=== PATIENT | male | born 1970 | race Caucasian/White ===

== ENCOUNTER → 2020-03-05 | Day surgery (SDC) | payer MEDICAID ==
[2020-02-27 16:32] LABS: BASOPHILS # (AUTO) 0.1 X10'3 (0-0.2); BASOPHILS % (AUTO) 0.8 % (0-1); EOSINOPHILS # (AUTO) 0.4 X10'3 (0-0.9); EOSINOPHILS % (AUTO) 5.2 % (0-6); LYMPHOCYTES # (AUTO) 1.5 X10'3 (1.1-4.8); LYMPHOCYTES % (AUTO) 18.2 % (21-51); MEAN CORPUSCULAR HEMOGLOBIN 28.3 PG (27.0-31.0); MEAN CORPUSCULAR HGB CONC 33.1 g/dL (33.0-36.5); MEAN CORPUSCULAR VOLUME 85.6 FL (78-98); MEAN PLATELET VOLUME 8.1 FL (7.4-10.4); MONOCYTES # (AUTO) 0.7 X10'3 (0-0.9); MONOCYTES % (AUTO) 8.4 % (2-12); NEUTROPHILS # (AUTO) 5.5 X10'3 (1.8-7.7); NEUTROPHILS % (AUTO) 67.4 % (42-75); PRE OP HEMATOCRIT 38.4 % (42.0-52.0); PRE OP HEMOGLOBIN 12.7 g/dL (14.0-17.9); PRE OP PLATELET COUNT 270 X10'3 (140-440); RED BLOOD COUNT 4.49 X10'6 (4.70-6.10); RED CELL DISTRIBUTION WIDTH 14.4 % (11.5-14.5)
[2020-02-27 16:47] LABS: ALBUMIN 3.7 G/DL (3.4-5.0); ALKALINE PHOSPHATASE 79 IU/L (46-116); BLOOD UREA NITROGEN 19 MG/DL (7-18); BUN/CREATININE RATIO 17.4 (5.4-32.0); CALCIUM 8.8 MG/DL (8.5-10.1); CHLORIDE 103 MMOL/L (99-107); CREATININE 1.09 MG/DL (0.60-1.10); PRE OP ALT 25 U/L (30-65); PRE OP ANION GAP 8 (8-16); PRE OP AST 15 U/L (10-37); PRE OP BILIRUB, TOTAL 0.3 MG/DL (0.0-1.0); PRE OP GLUCOSE 100 MG/DL (70-104); PRE OP POTASSIUM 4.3 MMOL/L (3.4-5.1); PRE OP SODIUM 138 MMOL/L (135-145); TOTAL PROTEIN 7.3 G/DL (6.4-8.2); eGFR 72 ML/MIN
[2020-03-05] VITALS (8 sets, daily range): BP systolic 117–139; BP diastolic 71–83
[~2020-03-05] VITALS: Ht 180.3 cm; Wt 106.6 kg
[~2020-03-05] MED LIST: ACET-75 PO; ALBU90AE INH; BUPIVAcaine/PF 2.5 mg/ml (0.25%) 30ml vial ONE; BUSP-28 PO; ETOD500T PO; FAMO40TA7 PO; FLO0.4C PO; GABA-530 PO; LIDO700A47 TOP; LIDOcaine 2% (20mg/ml) 5ml vial ONE; LISI10TA4 PO; MOME13HF2 INH; MONT10TA26 PO; NAPR-996 PO; OMEP-50 PO; QUET200T84 PO; VARE1TAB22 PO; acetaminophen 1,000mg/100ml IV 100 ML IV PRN; albuterol 2.5 MG/3 ML nebule NEB ONE; ceFAZolin 2gm in dextrose, iso 50 ML IV ONE; dexamethasone sod phosphate 4mg/ml inj. ONE; famotidine 20mg tablet PO ONE; fentaNYL/PF 50MCG/1 ML 2ML syringe ONE; meperidine/PF 25mg/ml syringe IV PRN; midazolam 2 mg/2 ml injection ONE; morphine 10mg/ml inj. ONE; morphine 2 MG/ML inj. syringe IV PRN; morphine 4 MG/ML inj SYRINge IV PRN; ondansetron/PF 4mg/2ml inj IV PRN; ondansetron/PF 4mg/2ml inj ONE; proCHLORperazine 10 MG/2 ml inj IV PRN; propofol inj 20 ML IV ONE; ringers solution, lacted 1,000 ML IV SCH; sevoflurane 250ml liquid IH ONE; triamcinolone acetonide 40mg/ml inj ONE; vancomycin 1,500 MG in NS 300ml IV soln IV ONE
--- NOTE | 2020-03-05 14:10 | NUR ---
Received from OR via , accompanied by Anesthesiologist DR MCCRACKEN and report given by Anesthesiolgist. AWAKENS TO VOICE. VITALS STABLE. DRESSING DI. JOCE PAIN.
--- NOTE | 2020-03-05 15:20 | NUR ---
AWAKE AND ORIENTED. VITALS STABLE. DRESSING DI. JOCE PAIN. HOME WITH A FRIEND AT THIS TIME.
== END | disposition home or self-care (01) ==
LOC: PAS 10:20
PROVIDERS: ATTEND Orthopaedic Surgery
DX: S83.272A Complex tear of lateral meniscus, current injury, left knee, initial encounter (principal); S83.232A Complex tear of medial meniscus, current injury, left knee, initial encounter; M17.0 Bilateral primary osteoarthritis of knee; J44.9 Chronic obstructive pulmonary disease, unspecified; F32.9 Major depressive disorder, single episode, unspecified; F41.9 Anxiety disorder, unspecified; K21.9 Gastro-esophageal reflux disease without esophagitis; I10 Essential (primary) hypertension; E66.8 Other obesity; Z68.33 Body mass index [BMI] 33.0-33.9, adult; F17.210 Nicotine dependence, cigarettes, uncomplicated; Z87.442 Personal history of urinary calculi; Z79.899 Other long term (current) drug therapy; Z86.14 Personal history of Methicillin resistant Staphylococcus aureus infection; Z86.11 Personal history of tuberculosis; Z98.890 Other specified postprocedural states; Z20.828 Contact with and (suspected) exposure to other viral communicable diseases; X58.XXXA Exposure to other specified factors, initial encounter; Y93.89 Activity, other specified; Y92.89 Other specified places as the place of occurrence of the external cause; Y99.8 Other external cause status
CPT/HCPCS: 29873; 29879; 29880; 36415; 80053; 82948; 85025; 87635; 93005; J1100; J2001; J2250; J2270; J2405; J2704; J3010; J3301; J3370; J3490; J7040; J7120; A4215; A4618; A6250; A6449; A7000

== ENCOUNTER 2021-11-30 18:10 | Emergency (ER) | payer MEDICAID ==
[~2021-11-30] VITALS: Ht 180.3 cm; Wt 115.5 kg
[~2021-11-30 18:10] MED LIST changes: -BUPIVAcaine/PF 2.5 mg/ml (0.25%) 30ml vial ONE; -LIDOcaine 2% (20mg/ml) 5ml vial ONE; +LISI10TA27 PO; -LISI10TA4 PO; +MONT-40 PO; -MONT10TA26 PO; -OMEP-50 PO; +OMEP20CA16 PO; -acetaminophen 1,000mg/100ml IV 100 ML IV PRN; -albuterol 2.5 MG/3 ML nebule NEB ONE; -ceFAZolin 2gm in dextrose, iso 50 ML IV ONE; -dexamethasone sod phosphate 4mg/ml inj. ONE; -famotidine 20mg tablet PO ONE; -fentaNYL/PF 50MCG/1 ML 2ML syringe ONE; -meperidine/PF 25mg/ml syringe IV PRN; -midazolam 2 mg/2 ml injection ONE; -morphine 10mg/ml inj. ONE; -morphine 2 MG/ML inj. syringe IV PRN; -morphine 4 MG/ML inj SYRINge IV PRN; -ondansetron/PF 4mg/2ml inj IV PRN; -ondansetron/PF 4mg/2ml inj ONE; -proCHLORperazine 10 MG/2 ml inj IV PRN; -propofol inj 20 ML IV ONE; -ringers solution, lacted 1,000 ML IV SCH; -sevoflurane 250ml liquid IH ONE; -triamcinolone acetonide 40mg/ml inj ONE; -vancomycin 1,500 MG in NS 300ml IV soln IV ONE
[2021-11-30 21:21] VITALS: BP 160/85
[2021-11-30 22:50] LABS: EOSINOPHILS # (AUTO) 0.2 X10'3 (0-0.9); HEMOGLOBIN 13.9 g/dl (14.0-17.9); MEAN PLATELET VOLUME 9.5 FL (7.4-10.4); RED CELL DISTRIBUTION WIDTH 14.1 % (11.5-14.5)
[2021-11-30 22:52] LABS: ALANINE AMINOTRANSFERASE 43 U/L (12-78); ALBUMIN 3.6 G/DL (3.4-5.0); ALBUMIN/GLOBULIN RATIO 1.2 (1.1-1.5); ALKALINE PHOSPHATASE 83 IU/L (46-116); ANION GAP 7 (8-16); ASPARTATE AMINO TRANSFERASE 29 U/L (10-37); BASOPHILS % (AUTO) 0.7 % (0-1); BILIRUBIN,TOTAL 0.3 MG/DL (0.1-1.0); BLOOD UREA NITROGEN 12 MG/DL (7-18); BUN/CREATININE RATIO 11.8 (5.4-32.0); CHLORIDE 106 MMOL/L (99-107); CREATININE 1.02 MG/DL (0.60-1.10); EOSINOPHILS % (AUTO) 2.4 % (0-6); GLUCOSE 102 MG/DL (70-104); HEMATOCRIT 41.5 % (42.0-52.0); LYMPHOCYTES # (AUTO) 1.8 X10'3 (1.1-4.8); LYMPHOCYTES % (AUTO) 25.1 % (21-51); MEAN CORPUSCULAR HEMOGLOBIN 26.9 PG (27.0-31.0); MEAN CORPUSCULAR HGB CONC 33.6 g/dL (33.0-36.5); MEAN CORPUSCULAR VOLUME 80.2 FL (78-98); MONOCYTES # (AUTO) 0.8 X10'3 (0-0.9); MONOCYTES % (AUTO) 10.7 % (2-12); NEUTROPHILS # (AUTO) 4.3 X10'3 (1.8-7.7); NEUTROPHILS % (AUTO) 61.1 % (42-75); PLATELET COUNT 266 X10'3 (140-440); POTASSIUM 3.7 MMOL/L (3.5-5.1); RED BLOOD COUNT 5.17 X10'6 (4.70-6.10); SODIUM 139 MMOL/L (135-145); TOTAL CARBON DIOXIDE 25.6 MMOL/L (24-32); TOTAL PROTEIN 6.7 G/DL (6.4-8.2); WHITE BLOOD COUNT 7.1 X10'3 (4.5-11.0); eGFR 77 ML/MIN
[2021-11-30 22:58] LABS: CALCIUM 8.5 MG/DL (8.5-10.1)
[2021-11-30] MEDS ORDERED: POTA-192 PO (23:37)
[2021-11-30] MEDS ORDERED: FURO-150 PO (23:37)
== END 2021-11-30 23:54 | disposition home or self-care (01) ==
LOC: ER 18:12
DX: R22.43 Localized swelling, mass and lump, lower limb, bilateral (principal); I42.9 Cardiomyopathy, unspecified; I10 Essential (primary) hypertension; J44.9 Chronic obstructive pulmonary disease, unspecified; K21.9 Gastro-esophageal reflux disease without esophagitis; G89.29 Other chronic pain; F17.200 Nicotine dependence, unspecified, uncomplicated
CPT/HCPCS: 36415; 71046; 80053; 84484; 85025; 85610; 99284

== ENCOUNTER 2022-10-11 09:38 | Day surgery (SDC) | payer MEDICAID ==
[2022-10-11] VITALS (18 sets, daily range): BP systolic 125–158; BP diastolic 75–94
[~2022-10-11] VITALS: Ht 177.8 cm; Wt 103.8 kg
[~2022-10-11 09:38] MED LIST changes: -ACET-75 PO; +BACL20TA PO; -BUSP-28 PO; -ETOD500T PO; -FAMO40TA7 PO; -FLO0.4C PO; +INDOCYANINE GREEN 25 MG/10 ML VIAL IV ONE; -LIDO700A47 TOP; -LISI10TA27 PO; +LISI40TA13 PO; -MOME13HF2 INH; -MONT-40 PO; -NAPR-996 PO; -QUET200T84 PO; -VARE1TAB22 PO; +cefazolin 2gm/D5W 100mL 100 ML IV ONE; +famotidine 20mg tablet PO ONE; +ringers solution, lacted 1,000 ML IV SCH
[2022-10-11 11:31] LABS: BASOPHILS # (AUTO) 0.1 X10'3 (0-0.2); BASOPHILS % (AUTO) 0.9 % (0-1); EOSINOPHILS # (AUTO) 0.1 X10'3 (0-0.9); EOSINOPHILS % (AUTO) 2.2 % (0-6); HEMATOCRIT 41.3 % (42.0-52.0); HEMOGLOBIN 13.6 g/dl (14.0-17.9); LYMPHOCYTES # (AUTO) 1.8 X10'3 (1.1-4.8); LYMPHOCYTES % (AUTO) 29.7 % (21-51); MEAN CORPUSCULAR HEMOGLOBIN 26.7 PG (27.0-31.0); MEAN CORPUSCULAR HGB CONC 32.8 g/dL (33.0-36.5); MEAN CORPUSCULAR VOLUME 81.2 FL (78-98); MONOCYTES # (AUTO) 0.7 X10'3 (0-0.9); MONOCYTES % (AUTO) 10.8 % (2-12); NEUTROPHILS # (AUTO) 3.4 X10'3 (1.8-7.7); NEUTROPHILS % (AUTO) 56.4 % (42-75); PLATELET COUNT 213 X10'3 (140-440); RED BLOOD COUNT 5.08 X10'6 (4.70-6.10); RED CELL DISTRIBUTION WIDTH 15.2 % (11.5-14.5); WHITE BLOOD COUNT 6.1 X10'3 (4.5-11.0)
[2022-10-11 11:45] LABS: ALANINE AMINOTRANSFERASE 29 U/L (12-78); ALBUMIN 3.6 G/DL (3.4-5.0); ALBUMIN/GLOBULIN RATIO 1.3 (1.1-1.5); ALKALINE PHOSPHATASE 78 IU/L (46-116); ANION GAP 8 (8-16); ASPARTATE AMINO TRANSFERASE 19 U/L (10-37); BILIRUBIN,TOTAL 0.4 MG/DL (0.1-1.0); BLOOD UREA NITROGEN 12 MG/DL (7-18); BUN/CREATININE RATIO 13.5 (10.0-20.0); CALCIUM 8.6 MG/DL (8.5-10.1); CHLORIDE 106 MMOL/L (99-107); CREATININE 0.89 MG/DL (0.60-1.10); GLUCOSE 102 MG/DL (70-104); POTASSIUM 3.3 MMOL/L (3.5-5.1); SODIUM 140 MMOL/L (135-145); TOTAL CARBON DIOXIDE 25.9 MMOL/L (24-32); TOTAL PROTEIN 6.4 G/DL (6.4-8.2); eGFR 90 ML/MIN
[2022-10-11] MEDS ORDERED: LIDOcaine 1% 30ml preserv. free vial ONE (12:32)
[2022-10-11] MEDS ORDERED: BUPIVAcaine/PF 2.5 mg/ml (0.25%) 30ml vial ONE (12:32)
[2022-10-11] MEDS ORDERED: proCHLORperazine 10 MG/2 ml inj IV PRN (12:55)
[2022-10-11] MEDS ORDERED: ondansetron/PF 4mg/2ml inj IV PRN (12:55)
[2022-10-11] MEDS ORDERED: hydrALAZINE 20mg/ml inj. IV PRN (12:55)
[2022-10-11] MEDS ORDERED: acetaminophen 1,000mg/100ml IV 100 ML IV PRN (12:55)
[2022-10-11] MEDS ORDERED: labetalol 20mg/4ml (5mg/ml) syringe IV PRN (12:55)
[2022-10-11] MEDS ORDERED: meperidine/PF 25mg/ml syringe IV PRN ×3 (12:55)
[2022-10-11] MEDS ORDERED: morphine 2 MG/ML inj. syringe IV PRN (12:55)
[2022-10-11] MEDS ORDERED: ringers solution, lacted 1,000 ML IV SCH (12:55)
[2022-10-11] MEDS ORDERED: morphine 4 MG/ML inj SYRINge IV PRN (12:55)
[2022-10-11] MEDS ORDERED: midazolam 1 mg/ML 2ml injection ONE (13:10)
[2022-10-11] MEDS ORDERED: fentaNYL /PF 50mcg/ml 5ml ampule ONE (14:13)
[2022-10-11] MEDS ORDERED: ondansetron/PF 4mg/2ml inj ONE (14:14)
[2022-10-11] MEDS ORDERED: propofol inj 20 ML IV ONE (14:14)
[2022-10-11] MEDS ORDERED: dexamethasone sod phosphate 4mg/ml inj. ONE (14:14)
[2022-10-11] MEDS ORDERED: LIDOcaine 1%/PF 5ML 10 MG/ML VIAL ONE ×2 (14:14)
[2022-10-11] MEDS ORDERED: rocuronium 10mg/ml inj IV ONE (14:14)
[2022-10-11] MEDS ORDERED: glycopyrrolate 0.2mg/ml inj ONE (14:17)
[2022-10-11] MEDS ORDERED: neostigmine methylsulfate 1 MG/ML 10ml vial ONE (14:17)
--- NOTE | 2022-10-11 14:35 | NUR ---
PT ARRIVED TO RR VIA GURNEY-THRASHING A BIT, NOT FULLY AWAKE, PT KEPT SAFE AND DRIFTED BACK TO SLEEP, VSS, LAP SITES X 4 CDI, DENIES PAIN, PT IS HOMELESS CURRENTLY
[2022-10-11] MEDS ORDERED: oxyCODONE/APAP 5-325mg tablet PO PRN (15:05)
--- NOTE | 2022-10-11 17:15 | NUR ---
PT SLEPT CALMLY FOR QUITE AWHILE, VSS, AWAKE NOW AND GETTING DRESSED-PAINFUL WITH MOVEMENT, GIVEN 1 PERCOCET, SISTER COMING TO GET PT. LAP SITES INTACT-UMBILICAL DRSG HAVING SOME BLEEDING-REINFORCED WITH 2X2'S AND TEGADERM. PT EDUCATED REGARDING HOME CARE. D/C INSTRUCTIONS GIVEN-ALL QUESTIONS ANSWERED, PIV D/CD, TAKEN WITH ALL BELONGINGS TO SISTERS CAR VIA W/C
== END 2022-10-11 23:59 | disposition home or self-care (01) ==
LOC: PRE-OP 09:38
PROVIDERS: ATTEND Surgery
DX: K80.10 Calculus of gallbladder with chronic cholecystitis without obstruction (principal); J44.9 Chronic obstructive pulmonary disease, unspecified; I10 Essential (primary) hypertension; F41.9 Anxiety disorder, unspecified; F32.A Depression, unspecified; K21.9 Gastro-esophageal reflux disease without esophagitis; F17.210 Nicotine dependence, cigarettes, uncomplicated; Z86.14 Personal history of Methicillin resistant Staphylococcus aureus infection; Z86.15 Personal history of latent tuberculosis infection; Z98.890 Other specified postprocedural states; Z79.899 Other long term (current) drug therapy; Z83.3 Family history of diabetes mellitus
CPT/HCPCS: 36415; 47563; 80053; 82948; 85025; 93005; J0131; J0690; J1100; J2175; J2250; J2405; J2704; J2710; J3010; J3490; J7030; J7120; S2900; Z7506; Z7508; Z7512; A4215; A4618; A6258; A7000

== ENCOUNTER 2024-04-24 16:49 | Inpatient (IN) | payer MEDICAID ==
[~2024-04-24] VITALS: Ht 180.3 cm; Wt 120.0 kg
[~2024-04-24 16:49] MED LIST changes: -INDOCYANINE GREEN 25 MG/10 ML VIAL IV ONE; -cefazolin 2gm/D5W 100mL 100 ML IV ONE; -famotidine 20mg tablet PO ONE; -ringers solution, lacted 1,000 ML IV SCH
[2024-04-24 18:03] LABS: BASOPHILS # (AUTO) 0.1 X10'3 (0-0.2); BASOPHILS % (AUTO) 0.5 % (0-1); EOSINOPHILS # (AUTO) 0.2 X10'3 (0-0.9); EOSINOPHILS % (AUTO) 1.5 % (0-6); HEMATOCRIT 42.7 % (42.0-52.0); HEMOGLOBIN 14.2 g/dl (14.0-17.9); LYMPHOCYTES # (AUTO) 1.4 X10'3 (1.1-4.8); LYMPHOCYTES % (AUTO) 12.5 % (21-51); MEAN CORPUSCULAR HEMOGLOBIN 27.8 PG (27.0-31.0); MEAN CORPUSCULAR HGB CONC 33.3 g/dL (33.0-36.5); MEAN CORPUSCULAR VOLUME 83.4 FL (78-98); MEAN PLATELET VOLUME 9.6 FL (7.4-10.4); MONOCYTES % (AUTO) 8.9 % (2-12); NEUTROPHILS # (AUTO) 8.4 X10'3 (1.8-7.7); NEUTROPHILS % (AUTO) 76.6 % (42-75); PLATELET COUNT 279 X10'3 (140-440); RED BLOOD COUNT 5.12 X10'6 (4.70-6.10); RED CELL DISTRIBUTION WIDTH 14.3 % (11.5-14.5); WHITE BLOOD COUNT 10.9 X10'3 (4.5-11.0)
[2024-04-24 19:52] LABS: ALANINE AMINOTRANSFERASE 61 U/L (12-78); ALBUMIN 3.8 G/DL (3.4-5.0); ALBUMIN/GLOBULIN RATIO 0.9 (1.1-1.5); ALKALINE PHOSPHATASE 87 IU/L (46-116); ANION GAP 19 (8-16); ASPARTATE AMINO TRANSFERASE 89 U/L (10-37); BILIRUBIN,TOTAL 0.6 MG/DL (0.1-1.0); BLOOD UREA NITROGEN 61 MG/DL (7-18); BUN/CREATININE RATIO 8.3 (10.0-20.0); CALCIUM 9.3 MG/DL (8.5-10.1); CHLORIDE 100 MMOL/L (99-107); CREATININE 7.36 MG/DL (0.60-1.10); GLUCOSE 170 MG/DL (70-104); SODIUM 137 MMOL/L (135-145); TOTAL CARBON DIOXIDE 17.7 MMOL/L (24-32); eCRCL 13 ML/MIN; eGFR 8 ML/MIN
[2024-04-24 19:59] LABS: PRO BRAIN NATRIURETIC PEPTIDE 156 PG/ML (0-125)
[2024-04-24] MEDS: methylPREDNISolone sod succ 125mg/2ml vial IV ONE (20:04)
[2024-04-24] MEDS: normal saline 1000ml 1,000 ML IV ONE ×3 (20:04→23:06)
[2024-04-24] MEDS: ipratropium/albuterol 3ml nebule NEB ONE (20:18)
[2024-04-24 20:19] VITALS: PULSE 92; RESP 18; O2SAT 99
[2024-04-24 20:29] VITALS: PULSE 90; RESP 16; O2SAT 100
[2024-04-24 20:42] LABS: ETHANOL < 10 MG/DL (<10)
[2024-04-24] MEDS: LORazepam 2 mg/ml vial IV ONE (22:26)
[2024-04-24] MEDS: acetaminophen 1,000mg/100ml IV 100 ML IV ONE (23:07)
[2024-04-25] VITALS (7 sets, daily range): BP systolic 108–117; BP diastolic 60–65; PULSE 85–98; RESP 16–19; TEMP 97.6–98.4; O2SAT 95–99
[2024-04-25] MEDS ORDERED: magnesium sulf-water 2g/50mL 50 ML IV PRN (00:10)
[2024-04-25] MEDS ORDERED: potassium Cl 20 mEq SR tablet PO PRN ×2 (00:10)
[2024-04-25] MEDS ORDERED: magnesium sulf-water 4G/100mL 100 ML IV PRN (00:10)
[2024-04-25] MEDS ORDERED: acetaminophen 325mg tablet PO PRN (00:10)
[2024-04-25] MEDS ORDERED: ondansetron/PF 4mg/2ml inj IV PRN (00:10)
[2024-04-25] MEDS ORDERED: magnesium Cl slow-release 64mg tablet PO PRN (00:10)
[2024-04-25] MEDS ORDERED: potassium Cl 40MEQ/1/2NS 520ml 520 ML IV PRN (00:10)
[2024-04-25] MEDS ORDERED: mag hydrox/Alum hydrox/simeth 30ml oral suspension PO PRN (00:10)
[2024-04-25] MEDS ORDERED: furosemide 10 MG/1 ML 10ml inj IV ONE (00:15)
[2024-04-25] MEDS ORDERED: ipratropium/albuterol 3ml nebule NEB PRN (00:25)
[2024-04-25] MEDS: PERFLUTREN PROTEIN-A MICROSPHR (Optison) 0.22 MG/ML 3ML VIAL IV ONE (00:37)
[2024-04-25] MEDS: VANCOMYCIN 1GM 200ML H20 (PEG) 200 ML IV PRN (01:47)
[2024-04-25] MEDS: sodium chloride 0.45% 1,000 ML IV SCH (01:47)
[2024-04-25 02:04] LABS: HEMOGLOBIN A1C 5.9 % (4.5-6.2)
[2024-04-25 02:10] LABS: ALBUMIN 3.4 G/DL (3.4-5.0); ANION GAP 14 (8-16); BLOOD UREA NITROGEN 62 MG/DL (7-18); BUN/CREATININE RATIO 10.6 (10.0-20.0); CALCIUM 8.3 MG/DL (8.5-10.1); CHLORIDE 104 MMOL/L (99-107); CREATININE 5.83 MG/DL (0.60-1.10); GLUCOSE 101 MG/DL (70-104); MAGNESIUM 2.1 MG/DL (1.5-2.4); POTASSIUM 4.5 MMOL/L (3.5-5.1); SODIUM 137 MMOL/L (135-145); TOTAL CARBON DIOXIDE 19.2 MMOL/L (24-32); eCRCL 16 ML/MIN; eGFR 10 ML/MIN
[2024-04-25 06:43] LABS: URINE AMPHETAMINE SCREEN POSITIVE (Neg); URINE BARBITUATE SCREEN NEGATIVE (Neg); URINE BENZODIAZEPINES SCREEN NEGATIVE (Neg); URINE CANNABINOID SCREEN NEGATIVE (Neg); URINE COCAINE SCREEN NEGATIVE (Neg); URINE METHADONE SCREEN NEGATIVE (Neg); URINE OPIATE SCREEN NEGATIVE (Neg); URINE PHENCYCLIDINE SCREEN NEGATIVE (Neg)
[2024-04-25] MEDS: morphine 2 MG/ML inj. syringe IV PRN (07:23)
[2024-04-25] MEDS: docusate sod 100mg capsule PO SCH (08:00)
[2024-04-25] MEDS: K and/or MAG REPLACEMENT MC SCH (08:00)
[2024-04-25] MEDS: heparin, porcine 5000 units/ml vial SQ SCH (08:00)
[2024-04-25] MEDS: clindamycin 300mg/D5W 50mL 50 ML IV SCH (08:24)
[2024-04-25] MEDS: acetaminophen 325mg tablet PO PRN (09:27)
[2024-04-25] MEDS ORDERED: VARE1TAB24 PO (14:24)
[2024-04-25] MEDS ORDERED: QUET50TA24 PO (14:24)
[2024-04-25] MEDS ORDERED: cefepime 1GM/NS ADD-VANTAGE 100 ML IV SCH (15:45)
[2024-04-25] MEDS ORDERED: cefepime 1GM in D5W 50mL 50 ML IV SCH (16:38)
[2024-04-25 16:41] LABS: CREATINE KINASE 2695 U/L (39-308)
[2024-04-25] MEDS: cefepime 1GM in D5W 50mL 50 ML IV SCH (18:27)
[2024-04-26] VITALS (7 sets, daily range): BP systolic 106–140; BP diastolic 66–86; PULSE 71–82; RESP 16–21; TEMP 97.1–98.1; O2SAT 96–99
[2024-04-26] MEDS: VANCOMYCIN 500MG/WATER FOR INJ (PEG) PREMIX 100 ML IV SCH (02:42)
[2024-04-26 07:01] LABS: BASOPHILS % (AUTO) 0.4 % (0-1); EOSINOPHILS % (AUTO) 0.4 % (0-6); HEMATOCRIT 35.8 % (42.0-52.0); LYMPHOCYTES # (AUTO) 1.5 X10'3 (1.1-4.8); LYMPHOCYTES % (AUTO) 13.1 % (21-51); MEAN CORPUSCULAR HGB CONC 33.5 g/dL (33.0-36.5); MEAN CORPUSCULAR VOLUME 83.5 FL (78-98); MEAN PLATELET VOLUME 9.9 FL (7.4-10.4); MONOCYTES # (AUTO) 1.1 X10'3 (0-0.9); MONOCYTES % (AUTO) 9.6 % (2-12); NEUTROPHILS # (AUTO) 8.7 X10'3 (1.8-7.7); NEUTROPHILS % (AUTO) 76.5 % (42-75); PLATELET COUNT 235 X10'3 (140-440); RED BLOOD COUNT 4.29 X10'6 (4.70-6.10); RED CELL DISTRIBUTION WIDTH 14.8 % (11.5-14.5); WHITE BLOOD COUNT 11.3 X10'3 (4.5-11.0)
[2024-04-26 07:21] LABS: ALANINE AMINOTRANSFERASE 48 U/L (12-78); ALBUMIN 2.9 G/DL (3.4-5.0); ALBUMIN/GLOBULIN RATIO 0.9 (1.1-1.5); ALKALINE PHOSPHATASE 69 IU/L (46-116); ANION GAP 6 (8-16); ASPARTATE AMINO TRANSFERASE 34 U/L (10-37); BILIRUBIN,TOTAL 0.4 MG/DL (0.1-1.0); BLOOD UREA NITROGEN 39 MG/DL (7-18); CALCIUM 8.3 MG/DL (8.5-10.1); CHLORIDE 107 MMOL/L (99-107); GLUCOSE 102 MG/DL (70-104); MAGNESIUM 2.2 MG/DL (1.5-2.4); POTASSIUM 4.7 MMOL/L (3.5-5.1); SODIUM 139 MMOL/L (135-145); TOTAL PROTEIN 6.2 G/DL (6.4-8.2); eCRCL 70 ML/MIN; eGFR 58 ML/MIN
[2024-04-26 09:10] LABS: CREATINE KINASE 599 U/L (39-308)
[2024-04-26] MEDS: magnesium hydroxide 30ml (MOM) UD suspension PO PRN (13:28)
[2024-04-26] MEDS ORDERED: HYDROcodone/acetaminophen 5mg/325mg tablet PO PRN (14:25)
[2024-04-26] MEDS: HYDROcodone/acetaminophen 10/325mg tab PO PRN (17:15)
[2024-04-26] MEDS ORDERED: gabapentin 100mg capsule PO SCH (20:00)
[2024-04-26] MEDS ORDERED: gabapentin 300mg capsule PO SCH (22:34)
[2024-04-26] MEDS: quetiapine 100mg tablet PO SCH (22:39)
[2024-04-26] MEDS: QUEtiapine 25mg tablet PO SCH (22:39)
[2024-04-26] MEDS: pantoprazole 40mg Tablet.DR PO SCH (22:40)
[2024-04-26] MEDS: baclofen 10mg tablet PO SCH (22:40)
[2024-04-26] MEDS: gabapentin 300mg capsule PO SCH (22:45)
[2024-04-27 01:08] VITALS: O2SAT 99
[2024-04-27 06:00] VITALS: BP 114/51; PULSE 65; RESP 16; TEMP 97.9; O2SAT 99
[2024-04-27 07:00] VITALS: RESP 16; O2SAT 96
[2024-04-27] MEDS ORDERED: pantoprazole 40mg Tablet.DR PO SCH (07:30)
[2024-04-27 07:48] LABS: BASOPHILS # (AUTO) 0.1 X10'3 (0-0.2); BASOPHILS % (AUTO) 1.1 % (0-1); EOSINOPHILS # (AUTO) 0.2 X10'3 (0-0.9); EOSINOPHILS % (AUTO) 2.5 % (0-6); HEMATOCRIT 38.5 % (42.0-52.0); HEMOGLOBIN 12.8 g/dl (14.0-17.9); LYMPHOCYTES # (AUTO) 2.5 X10'3 (1.1-4.8); LYMPHOCYTES % (AUTO) 36.3 % (21-51); MEAN CORPUSCULAR HEMOGLOBIN 27.9 PG (27.0-31.0); MEAN CORPUSCULAR HGB CONC 33.3 g/dL (33.0-36.5); MEAN CORPUSCULAR VOLUME 83.7 FL (78-98); MEAN PLATELET VOLUME 9.2 FL (7.4-10.4); MONOCYTES # (AUTO) 0.6 X10'3 (0-0.9); MONOCYTES % (AUTO) 9.5 % (2-12); NEUTROPHILS # (AUTO) 3.4 X10'3 (1.8-7.7); NEUTROPHILS % (AUTO) 50.6 % (42-75); PLATELET COUNT 228 X10'3 (140-440); RED BLOOD COUNT 4.59 X10'6 (4.70-6.10); RED CELL DISTRIBUTION WIDTH 14.7 % (11.5-14.5); WHITE BLOOD COUNT 6.8 X10'3 (4.5-11.0)
[2024-04-27 07:51] VITALS: BP_SYST 114; PULSE 65
[2024-04-27] MEDS: lisinopril 10 MG tablet PO SCH (07:51)
[2024-04-27] MEDS: VARENICLINE TARTRATE 1 MG PO SCH (07:54)
[2024-04-27 08:18] LABS: ALANINE AMINOTRANSFERASE 47 U/L (12-78); ALBUMIN 2.9 G/DL (3.4-5.0); ALBUMIN/GLOBULIN RATIO 0.8 (1.1-1.5); ALKALINE PHOSPHATASE 80 IU/L (46-116); ANION GAP 5 (8-16); ASPARTATE AMINO TRANSFERASE 31 U/L (10-37); BILIRUBIN,TOTAL 0.2 MG/DL (0.1-1.0); BLOOD UREA NITROGEN 27 MG/DL (7-18); BUN/CREATININE RATIO 26.2 (10.0-20.0); CALCIUM 8.6 MG/DL (8.5-10.1); CHLORIDE 105 MMOL/L (99-107); CREATINE KINASE 171 U/L (39-308); CREATININE 1.03 MG/DL (0.60-1.10); GLUCOSE 91 MG/DL (70-104); MAGNESIUM 1.7 MG/DL (1.5-2.4); POTASSIUM 5.1 MMOL/L (3.5-5.1); SODIUM 140 MMOL/L (135-145); TOTAL CARBON DIOXIDE 29.6 MMOL/L (24-32); TOTAL PROTEIN 6.5 G/DL (6.4-8.2); eCRCL 88 ML/MIN; eGFR 76 ML/MIN
[2024-04-27 13:33] VITALS: RESP 18
[2024-04-27] MEDS ORDERED: DOXY100C2 PO (14:02)
[2024-04-28] MEDS ORDERED: VANCOMYCIN LEVEL IV ONE (01:30)
== END 2024-04-27 15:15 | disposition home or self-care (01) | DRG 383 ==
LOC: ER 16:51 → ED HOLD 04-25 03:41 → ORTHO 4S 04-25 09:35
PROVIDERS: ADMIT Surgery Surgical Critical Care; ATTEND Internal Medicine
PROC: BW2F1ZZ Computerized Tomography (CT Scan) of Neck using Low Osmolar Contrast (ICD-10-PCS; principal; 2024-04-24)
DX: L03.012 Cellulitis of left finger (principal); E87.20 Acidosis, unspecified; N17.9 Acute kidney failure, unspecified; I95.9 Hypotension, unspecified; M62.82 Rhabdomyolysis; Z66 Do not resuscitate; I10 Essential (primary) hypertension; J44.9 Chronic obstructive pulmonary disease, unspecified; Z20.822 Contact with and (suspected) exposure to COVID-19; E86.0 Dehydration; F41.9 Anxiety disorder, unspecified; S69.82XA Other specified injuries of left wrist, hand and finger(s), initial encounter; K21.9 Gastro-esophageal reflux disease without esophagitis; G89.29 Other chronic pain; F15.10 Other stimulant abuse, uncomplicated; R73.03 Prediabetes; K40.90 Unilateral inguinal hernia, without obstruction or gangrene, not specified as recurrent; Z96.652 Presence of left artificial knee joint; F17.200 Nicotine dependence, unspecified, uncomplicated; W45.8XXA Other foreign body or object entering through skin, initial encounter; Y93.89 Activity, other specified; Y92.89 Other specified places as the place of occurrence of the external cause; Y99.8 Other external cause status; Z79.899 Other long term (current) drug therapy
CPT/HCPCS: 36415; 70490; 71045; 71250; 73130; 74176; 80048; 80053; 80305; 80320; 82550; 83036; 83605; 83735; 83880; 84484; 85025; 87040; 87081; 87811; 93005; 93306; 94640; 94760; 96365; 99291; A4615; G0378; J0131; J0692; J1644; J2270; J2919; J3372; J3490; J7030